=== PATIENT | male | born 1970 | race Caucasian/White ===

== ENCOUNTER → 2017-07-03 | Outpatient (CLI) | payer OTHER ==
[~2017-07-03] MED LIST: CENTTAB47 PO
--- NOTE | 2017-07-03 16:48 | REP ---
Clinical: Radiculopathy. Technique: AP, lateral, flexion/extension, bilateral oblique, swimmers and open-mouth views of the cervical spine. Comparison: 07/11/2014. Findings: Chronic reversal of normal lordosis along with evidence for prior anterior fusion at the C5-6 level and moderate/early advanced multilevel degenerative changes are again appreciated and similar to prior examination. The associated disc spaces appear minimally narrowed and disc bulge/herniation cannot be excluded based on radiographic evaluation. Retrolisthesis at the C4-5 level of approximately 3 mm is noted and remains stable on flexion/extension views. No acute fracture / compression injury. Impression: Moderate to advanced multilevel degenerative changes as described above similar to 2014. Disc bulges/herniations cannot be excluded based on current radiographic evaluation. If the patient remains symptomatic consider MRI for further investigation. Signed by Camilo Herzog MD 07/03/2017 04:40 P
== END ==
LOC: M RAD 16:12
PROVIDERS: ATTEND Family Medicine
DX: M54.12 Radiculopathy, cervical region (principal); M50.30 Other cervical disc degeneration, unspecified cervical region

== ENCOUNTER → 2018-03-31 | Outpatient (CLI) | payer OTHER | LOC: M RAD 15:57 | DX: M79.671 Pain in right foot (principal) | CPT/HCPCS: 73650 ==

== ENCOUNTER 2019-01-28 11:58 | Day surgery (SDC) | payer OTHER ==
[~2019-01-28] VITALS: Ht 165.1 cm; Wt 68.9 kg
[~2019-01-28 11:58] MED LIST changes: +NS 1,000 ML IV ONE
[2019-01-28] MEDS ORDERED: LIDOCAINE 2% INJ 100 MG/5 ML SDV (FOR ANES.) As Ordered ONE (12:18)
[2019-01-28] MEDS ORDERED: fentaNYL 100 MCG/2 ML INJECTION (J3010) As Ordered ONE (12:18)
[2019-01-28] MEDS ORDERED: PROPOFOL 500 MG/50 ML VIAL As Ordered ONE (12:19)
[2019-01-28] MEDS ORDERED: PHENYLephrine HCL 500 MCG/5 ML (100MCG/ML) SYRINGE (J2370) As Ordered ONE (13:57)
--- NOTE | 2019-01-28 14:08 | ROOR ---
Patient Name: Nathan Fajardo Procedure Date: 01/28/2019 1:45 PM Date of : 1970 Age: 48 Room: [facility] Gender: Male Note Status: Finalized Procedure: Upper GI endoscopy Indications: Oropharyngeal phase dysphagia, Globus sensation Providers: Campos HUSSEIN MD Referring MD: YAMIL JARA MD Requesting Provider: Medicines: Monitored Anesthesia Care Complications: No immediate complications. Procedure: Pre-Anesthesia Assessment: - The heart rate, respiratory rate, oxygen saturations, blood pressure, adequacy of pulmonary ventilation, and response to care were monitored throughout the procedure. The Endoscope was introduced through the mouth, and advanced to the second part of duodenum. The upper GI endoscopy was accomplished without difficulty. The patient tolerated the procedure well. Findings: A moderate-sized area of extrinsic compression was found at the cricopharyngeus. The examined esophagus was normal. The entire examined stomach was normal. The examined duodenum was normal. The scope was withdrawn. Dilation was performed in the esophagus with a Gross dilator with mild resistance at 50 Fr. Impression: - Extrinsic compression at the cricopharyngeus. Dilation performed in the esophagus. - Normal esophagus. - Normal stomach. - Normal examined duodenum. - No specimens collected. Recommendation: - Observe patient's clinical course. - Use Prilosec (omeprazole) 40 mg PO daily. Campos Hussein MD Campos HUSSEIN MD 01/28/2019 2:08:27 PM Electronically signed by Campos HUSSEIN MD Number of Addenda: 0 Note Initiated On: 01/28/2019 1:45 PM Estimated Blood Loss: Estimated blood loss: none.
--- NOTE | 2019-01-28 14:12 | ROOR ---
Patient Name: Nathan Fajardo Procedure Date: 01/28/2019 1:46 PM Date of : 1970 Age: 48 Room: [facility] Gender: Male Note Status: Finalized Procedure: Colonoscopy Indications: Last colonoscopy: May 2016, Hematochezia Providers: Campos SHAH MD Referring MD: YAMIL JARA MD Requesting Provider: Medicines: Monitored Anesthesia Care Complications: No immediate complications. Procedure: Pre-Anesthesia Assessment: - The heart rate, respiratory rate, oxygen saturations, blood pressure, adequacy of pulmonary ventilation, and response to care were monitored throughout the procedure. The Colonoscope was introduced through the anus and advanced to the cecum, identified by appendiceal orifice and ileocecal valve. The colonoscopy was performed without difficulty. The patient tolerated the procedure well. The quality of the bowel preparation was good. Findings: The perianal and digital rectal examinations were normal. Two sessile polyps were found in the sigmoid colon and splenic flexure. The polyps were diminutive in size. These polyps were removed with a jumbo cold forceps. Resection and retrieval were complete. Mild sigmoid diverticulosis and moderate to large internal hemorrhoids. Impression: - Two diminutive polyps in the sigmoid colon and at the splenic flexure, removed with a jumbo cold forceps. Resected and retrieved. - Mild sigmoid diverticulosis and moderate to large internal hemorrhoids. - The colon exam was otherwise normal. Recommendation: - Repeat colonoscopy in 5 years for surveillance. Campos Shah MD Campos SHAH MD 01/28/2019 2:12:11 PM Electronically signed by Campos SHAH MD Number of Addenda: 0 Note Initiated On: 01/28/2019 1:46 PM Estimated Blood Loss: Estimated blood loss: none.
[2019-01-28 14:44] VITALS: BP 118/79
== END 2019-01-28 14:44 | disposition home or self-care (01) ==
LOC: M OPP 11:58
PROVIDERS: ATTEND Internal Medicine Gastroenterology
DX: K63.5 Polyp of colon (principal); K57.30 Diverticulosis of large intestine without perforation or abscess without bleeding; K64.8 Other hemorrhoids; K92.1 Melena; K22.2 Esophageal obstruction; R13.12 Dysphagia, oropharyngeal phase; F45.8 Other somatoform disorders; F17.210 Nicotine dependence, cigarettes, uncomplicated
CPT/HCPCS: 43235; 43450; 45380; 88305; J2370; J3010

== ENCOUNTER → 2019-11-07 | Outpatient (REF) | payer OTHER ==
[~2019-11-07] MED LIST changes: -NS 1,000 ML IV ONE
[2019-11-07 13:21] LABS: INFLUENZA A AMPLIFICATION NEGATIVE (NEGATIVE); INFLUENZA B AMPLIFICATION NEGATIVE (NEGATIVE)
== END ==
LOC: M LAB REF 10:32
PROVIDERS: ATTEND Physician Assistant Medical
DX: R50.9 Fever, unspecified (principal); R05 Cough; J11.1 Influenza due to unidentified influenza virus with other respiratory manifestations

== ENCOUNTER 2020-03-31 11:52 | Inpatient (IN) | payer OTHER ==
[~2020-03-31] VITALS: Ht 165.1 cm; Wt 67.8 kg
[2020-03-31 12:41] LABS: BASO # 0.1 10^3/uL (0.0-0.2); BASO % 0.4 % (0.0-1.0); EOS # 0.3 10^3/uL (0.0-0.5); EOS % 2.7 % (0.0-3.0); HEMATOCRIT 42.8 % (42.0-52.0); HEMOGLOBIN 15.1 g/dl (13.5-17.5); LYMPH % 24.9 % (24.0-44.0); MEAN CORPUSCULAR HEMOGLOBIN 31.4 pg (27.0-33.0); MEAN CORPUSCULAR HGB CONC 35.3 g/dl (32.0-36.5); MONO # 0.7 10^3/uL (0.0-0.8); MONO % 6.1 % (0.0-5.0); NEUTROPHILS # 7.9 10^3/uL (1.5-8.5); NEUTROPHILS % 65.6 % (36.0-66.0); PLATELET COUNT, AUTOMATED 258 10^3/uL (150-450); RED BLOOD COUNT 4.81 10^6/uL (4.30-6.10); WHITE BLOOD COUNT 12.1 10^3/uL (4.0-10.0)
[2020-03-31 12:54] LABS: INR 0.94; PROTHROMBIN TIME 12.3 SECONDS (11.8-14.0)
[2020-03-31 12:55] LABS: PARTIAL THROMBOPLASTIN TIME 27.3 SECONDS (25.0-38.4)
[2020-03-31 13:09] LABS: BLOOD UREA NITROGEN 15 MG/DL (7-18); CALCIUM LEVEL 8.8 MG/DL (8.5-10.1); CARBON DIOXIDE LEVEL 25 MEQ/L (21-32); CHLORIDE LEVEL 109 MEQ/L (98-107); CK-MB VALUE MASS 2.7 NG/ML (<3.6); CPK CREATINE PHOSPHOKINASE 310 U/L (39-308); CREATININE FOR GFR 0.84 MG/DL (0.70-1.30); GLOMERULAR FILTRATION RATE > 60.0 (>56); GLUCOSE, FASTING 90 MG/DL (70-100); MB/CK RELATIVE INDEX 0.87 (< OR =4); POTASSIUM SERUM 4.1 MEQ/L (3.5-5.1); SODIUM LEVEL 141 MEQ/L (136-145); TROPONIN I < 0.02 NG/ML (< 0.10)
[2020-03-31] MEDS ORDERED: ASPIRIN 325 MG TAB PO ONE (13:15)
[2020-03-31] MEDS ORDERED: ACETAMINOPHEN TAB 650MG DOSE (2X325MG) PO PRN (14:00)
--- NOTE | 2020-03-31 14:34 | HPEPDOC ---
General Date of Admission March 31, 2020 at 13:56 Date of Service: March 31, 2020 Chief Complaint The patient is a 49-year-old male admitted with a reason for visit of CVA. Source: Patient Exam Limitations: No limitations Timing/Duration: Day(s) History of Present Illness Patient is 49 years old male without significant past medical history presented hospital with left facial numbness and soreness of his speech. Patient stated that his symptoms started 2 days ago when he noticed numbness of left part of his face and he noticed that his speech became slightly slurry. Yesterday his noticed left mouth droop, and today she advised him to come to the hospital. Patient denied any legs or arms weaknesses. Of note patient complains of teeth problem, he stated that his dentist planned to remove upper dentures. However he denies any left-sided tooth pain. He denied fever, chills. In emergency room patient patient was found to have mouth droop, CT head was negative for acute bleed. I talked to Dr. Villalba he recommended MRI, MRA of the brain Home Medications No Active Prescriptions or Reported Meds Allergies Coded Allergies: No Known Allergies (Unverified , 01/26/19) Past Medical History Medical History Congenital right forearm deformity Surgical History Neck disc surgery Family History Father from heart attack Social History * Smoker: current smoker Alcohol: occationally Drugs: denies A-FIB/CHADSVASC A-FIB History Current/History of A-Fib/PAF?: No Current PO Anticoag Therapy: No Review of Systems Constitutional: Denies: Chills, Fever Eyes: Denies: Pain, Vision change ENT: Denies: Ear Pain, Dysphagia Skin: Reports: Other (left facial numbness); Denies: Rash Pulmonary: Denies: Dyspnea Cardiovascular: Denies: Chest Pain Gastrointestinal: Denies: Nausea Genitourinary: Denies: Dysuria, Frequency Hematologic: Denies: Bruising Endocrine: Denies: Polydipsia, Polyphagia Musculoskeletal: Denies: Neck Pain, Back Pain Neurological: Reports: Numbness (left facial,), Change in speech (mild slurriness) Psych: Reports: Mood Normal Physical Examination General Exam: Positive: Alert, Cooperative Eye Exam: Positive: PERRLA ENT Exam: Positive: Atraumatic, Mucous membr. moist/pink Neck Exam: Positive: Supple Chest Exam: Positive: Clear to auscultation Heart Exam: Positive: Rate Normal Telemetry: Positive: No significant arrhythmia Abdomen Exam: Positive: Normal bowel sounds Extremity Exam: Negative: Clubbing, Cyanosis Skin Exam: Positive: Nl turgor and temperature Neuro Exam: Positive: Normal Gait, Strength at 5/5 X4 ext, Sensation Intact (left facial numbness); Negative: Normal Speech (mild slurriness) Psych Exam: Positive: Mental status NL Vital Signs Vital Signs Date Time Temp Pulse Resp B/P (MAP) Pulse Ox O2 Delivery O2 Flow Rate FiO2 03/31/20 13:15 61 18 118/62 (80) 97 Room Air 03/31/20 11:55 98.7 Laboratory Data Labs 24H Laboratory Tests 2 03/31/20 12:28: Immature Granulocyte % (Auto) 0.3, Neutrophils (%) (Auto) 65.6, Lymphocytes (%) (Auto) 24.9, Monocytes (%) (Auto) 6.1H, Eosinophils (%) (Auto) 2.7, Basophils (%) (Auto) 0.4, Neutrophils # (Auto) 7.9, Lymphocytes # (Auto) 3.0, Monocytes # (Auto) 0.7, Eosinophils # (Auto) 0.3, Basophils # (Auto) 0.1, Nucleated Red Blood Cells % (auto) 0.0, Prothrombin Time 12.3, Prothromb Time International Ratio 0.94, Activated Partial Thromboplast Time 27.3, Anion Gap 7L, Glomerular Filtration Rate > 60.0, Calcium Level 8.8, Total Creatine Kinase 310H, Creatine Kinase MB 2.7, Creatine Kinase MB Relative Index 0.87, Troponin I < 0.02 03/31/20 12:53: Bedside Glucose (Misc Panel) 92 CBC/BMP Laboratory Tests 03/31/20 12:28 Assessment/Plan Patient is 49 years old male without significant past medical history presented hospital with left facial numbness and soreness of his speech. Patient stated that his symptoms started 2 days ago when he noticed numbness of left part of his face and he noticed that his speech became slightly slurry. Yesterday his noticed left mouth droop, and today she advised him to come to the hospital. Patient denied any legs or arms weaknesses. Of note patient complains of teeth problem, he stated that his dentist planned to remove upper dentures. However he denies any left-sided tooth pain. He denied fever, chills. In emergency room patient patient was found to have mouth droop, CT head was negative for acute bleed. I talked to Dr. Villalba he recommended MRI, MRA of the brain Problems (1) Facial droop Status: Acute Problem Text: Unclear etiology for now CT scan was negative for acute bleed Differential diagnosis includes CVA versus Greenberg's palsy secondary to infection from the tooth or viral infection MRI, MRA Statin, aspirin Will proceed with echo Telemetry (2) Slurred speech Status: Acute Problem Text: See above Plan / VTE VTE Prophylaxis Ordered?: Yes MARGARITA PONCE DO March 31, 2020 14:34
--- NOTE | 2020-03-31 15:05 | REPVR ---
PROCEDURE INFORMATION: Exam: MR Head Without Contrast Exam date and time: 03/31/2020 1:21 PM Age: 49 years old Clinical indication: Speech disturbance; Patient HX: Facial numbness, slurred speech; Additional info: CVA TECHNIQUE: Imaging protocol: MR of the head without contrast. COMPARISON: CT Head without contrast 03/31/2020 12:06 PM FINDINGS: Brain: Examination of the brain demonstrates normal morphology and signal intensity.No acute infarction, masses, midline shift or acute hemorrhage is seen. No acute intracranial abnormality is identified.There is no abnormal diffusion weighted signal intensity to suggest an acute ischemic event.The cortical diaz / white matter interfaces are preserved throughout the brain.Intracranial flow voids are well maintained.Examination of the posterior fossa demonstrates no significant abnormality.On gradient echo imaging, no susceptibility changes are seen to represent parenchymal calcification or degraded blood products. Ventricles: The ventricular system is not dilated and is appropriate for the patient's age. Bones/joints: Unremarkable. Sinuses: Retention cyst is seen in the left maxillary sinus. Mild mucosal thickening is seen in the paranasal sinuses. Mastoid air cells: Normal as visualized. No mastoid effusion. Orbits: Unremarkable. Soft tissues: Unremarkable. IMPRESSION: 1. No acute infarction, masses or hemorrhage is seen. No acute intracranial abnormality is identified. 2. There has been no adverse interval change since the previous study. Electronically signed by: Jc Cain On 03/31/2020 15:05:11 PM
--- NOTE | 2020-03-31 15:07 | REP ---
CT BRAIN WITHOUT CONTRAST: CT brain performed without IV contrast. Coronal reconstruction images are performed. The ventricles are normal in size and position. There is no midline shift or mass effect. Pryor-white differentiation is well maintained. There is no acute intracranial hemorrhage or extra-axial fluid collection. Mastoid air cells appear clear. There is mild to moderate mucosal thickening in the ethmoid sinuses. IMPRESSION: Mild to moderate mucosal thickening and sinusitis involving the ethmoid sinuses. Otherwise, negative noncontrast CT brain. Electronically Signed by David Pryor MD 03/31/2020 09:49 P
--- NOTE | 2020-03-31 15:10 | REPVR ---
PROCEDURE INFORMATION: Exam: MR Angiogram Head Without Contrast, Arteries Exam date and time: 03/31/2020 1:21 PM Age: 49 years old Clinical indication: Speech disturbance; Slurred speech; Additional info: CVA TECHNIQUE: Imaging protocol: MR angiogram head without contrast. Exam focused on the arteries. 3D rendering: MIP and/or 3D reconstructed images were created by the technologist. COMPARISON: CT Head without contrast 03/31/2020 12:06 PM FINDINGS: Anterior cerebral arteries: Intracranial segment is patent with no significant stenosis. No aneurysm. Right internal carotid artery: Intracranial segment is patent with no significant stenosis. No aneurysm. Right middle cerebral artery: No occlusion or significant stenosis. No aneurysm. Right posterior cerebral artery: No occlusion or significant stenosis. No aneurysm. Right vertebral artery: No occlusion or significant stenosis. No aneurysm. Left internal carotid artery: Intracranial segment is patent with no significant stenosis. No aneurysm. Left middle cerebral artery: No occlusion or significant stenosis. No aneurysm. Left posterior cerebral artery: No occlusion or significant stenosis. No aneurysm. Left vertebral artery: No occlusion or significant stenosis. No aneurysm. Basilar artery: No occlusion or significant stenosis. No aneurysm. IMPRESSION: No stenosis.No occlusion. No aneurysm. Electronically signed by: Jc Cain On 03/31/2020 15:10:07 PM
[2020-03-31 15:14] VITALS: BP 145/90
--- NOTE | 2020-03-31 15:26 | REP ---
CHEST, AP: AP views of the chest are performed with portable technique. No acute infiltrate is seen. There appears to be mild biapical pleural and parenchymal scarring. Heart is not enlarged. Mediastinal silhouette is unremarkable. IMPRESSION: No acute pulmonary disease. Electronically Signed by David Pryor MD 03/31/2020 09:53 P
--- NOTE | 2020-03-31 15:35 | REP ---
CAROTID ULTRASOUND: Real-time ultrasound evaluation and duplex Doppler interrogation of the extracranial carotid vasculature is performed. There is mild plaquing and narrowing in both carotid bulbs extending into the internal and external carotid arteries. Luminal narrowing is less than 50%. There is no evidence of hemodynamically significant stenosis of either internal carotid artery. Normal flow velocities are seen. The vertebral arteries demonstrate normal direction of flow. RIGHT LEFT Peak systolic velocity ICA 72.7 cm/s 70 cm/s End diastolic velocity ICA 30.2 cm/s 13.4 cm/s Peak systolic velocity CCA 103.3 cm/s 92.6 cm/s Peak systolic velocity ECA 104.7 cm/s 82.4 cm/s ICA/CCA ratio 0.7 0.7 IMPRESSION: Bilateral luminal narrowing of the internal carotid arteries less than 50%. No evidence of hemodynamically significant stenosis. Electronically Signed by David Pryor MD 03/31/2020 03:27 P
[2020-03-31 16:49] LABS: PROTHROMBIN TIME 12.9 SECONDS (11.8-14.0)
[2020-03-31] MEDS: predniSONE 20 MG TAB PO SCH (17:15)
[2020-03-31] MEDS: HEPARIN SOD (PORCINE) 5000UNITS/ML VIAL (J1644 PER 1000UNITS) SC SCH ×3 (21:00→22:52)
[2020-03-31] MEDS ORDERED: ATORVASTATIN 20 MG TAB PO SCH (21:00)
[2020-03-31 22:00] VITALS: BP 116/67
[2020-03-31] MEDS: AUGMENTIN 875 MG TAB PO SCH (22:07)
[2020-03-31] MEDS: valACYclovir HCL 500 MG TAB PO SCH (22:08)
[2020-04-01 06:00] VITALS: BP 122/77
[2020-04-01 06:28] LABS: HEMATOCRIT 42.9 % (42.0-52.0); HEMOGLOBIN 15.2 g/dl (13.5-17.5); MEAN CORPUSCULAR HEMOGLOBIN 31.5 pg (27.0-33.0); MEAN CORPUSCULAR HGB CONC 35.4 g/dl (32.0-36.5); MEAN CORPUSCULAR VOLUME 88.8 fl (80.0-96.0); PLATELET COUNT, AUTOMATED 271 10^3/uL (150-450); RED BLOOD COUNT 4.83 10^6/uL (4.30-6.10); WHITE BLOOD COUNT 11.9 10^3/uL (4.0-10.0)
[2020-04-01 06:49] LABS: ALBUMIN 3.8 GM/DL (3.2-5.2); ALT/SGPT 25 U/L (12-78); BILIRUBIN,TOTAL 0.7 MG/DL (0.2-1.0); BLOOD UREA NITROGEN 13 MG/DL (7-18); CALCIUM LEVEL 8.9 MG/DL (8.5-10.1); CARBON DIOXIDE LEVEL 25 MEQ/L (21-32); CHLORIDE LEVEL 107 MEQ/L (98-107); CHOLESTEROL LEVEL 234 MG/DL (<200); CHOLESTEROL RISK RATIO 4.105 (<5); CREATININE FOR GFR 0.79 MG/DL (0.70-1.30); GLOMERULAR FILTRATION RATE > 60.0 (>56); GLUCOSE, FASTING 133 MG/DL (70-100); HDL CHOLESTEROL 57 MG/DL (>40); LDL CHOLESTEROL 167 MG/DL (<100); MAGNESIUM LEVEL 2.1 MG/DL (1.8-2.4); NON-HDL-C 177 MG/DL; POTASSIUM SERUM 4.2 MEQ/L (3.5-5.1); SODIUM LEVEL 137 MEQ/L (136-145); TRIGLYCERIDES LEVEL 50 MG/DL (<150)
[2020-04-01] MEDS: AUGMENTIN 875 MG TAB PO SCH (08:42)
[2020-04-01] MEDS: valACYclovir HCL 500 MG TAB PO SCH (08:42)
[2020-04-01] MEDS: predniSONE 20 MG TAB PO SCH (08:42)
[2020-04-01] MEDS: HEPARIN SOD (PORCINE) 5000UNITS/ML VIAL (J1644 PER 1000UNITS) SC SCH (08:42)
[2020-04-01] MEDS ORDERED: ASPIRIN 81 MG CHEW TABLET PO SCH (09:00)
[2020-04-01] MEDS ORDERED: VALA500T5 PO (11:06)
[2020-04-01] MEDS ORDERED: ATOR1TAB21 PO (11:06)
[2020-04-01] MEDS ORDERED: AMOX875T2 PO (11:06)
[2020-04-01] MEDS ORDERED: PRED20TA PO (11:06)
--- NOTE | 2020-04-01 13:34 | DS.PDOC ---
Discharge Summary General Date of Admission March 31, 2020 at 13:56 Date of Discharge 04/01/20 Discharge Summary PROCEDURES PERFORMED DURING STAY: [None]. ADMITTING DIAGNOSES: Facial droop Slurred speech DISCHARGE DIAGNOSES: Facial droop Slurred speech COMPLICATIONS/CHIEF COMPLAINT: CVA. HISTORY OF PRESENT ILLNESS: Patient is 49 years old male without significant past medical history presented hospital with left facial numbness and soreness of his speech. Patient stated that his symptoms started 2 days ago when he noticed numbness of left part of his face and he noticed that his speech became slightly slurry. Yesterday his noticed left mouth droop, and today she advised him to come to the hospital. Patient denied any legs or arms weaknesses. Of note patient complains of teeth problem, he stated that his dentist planned to remove upper dentures. However he denies any left-sided tooth pain. He denied fever, chills. In emergency room patient patient was found to have mouth droop, CT head was negative for acute bleed. I talked to Dr. Villalba he recommended MRI, MRA of the brain HOSPITAL COURSE: The following issue addressed (1) Facial droop CT scan was negative for acute bleed Differential diagnosis includes CVA versus Greenberg's palsy secondary to infection from the tooth or viral infection MRI, MRA negative Most likely patient developed Greenberg's palsy given negative imaging study DISCHARGE MEDICATIONS: Please see below. ALLERGIES: Please see below. PHYSICAL EXAMINATION ON DISCHARGE: VITAL SIGNS: Please see below. GENERAL: awake, alert, NAD HEENT: NCAT, anicteric sclera, JETHRO NECK: supple, no JVD CARDIOVASCULAR EXAMINATION: NS1S2, regular rate/rhythm RESPIRATORY EXAMINATION: CTA b/l, no wheezes/rales/rhonchi ABDOMINAL EXAMINATION: positive bowel sounds x 4, NT EXTREMITIES: no cyanosis, clubbing, edema SKIN: warm, no rashes. NEUROLOGICAL EXAMINATION: AAO x 3, mild left facial droop PSYCHIATRIC EXAMINATION: calm, normal affect LABORATORY DATA: Please see below. IMAGING: [facility] NAME: RADHA CHEN DATE OF : 1970 BUSINESS NUMBER: [id number] AGE: 49 SEX: M REPORT #: [id number] ROOM: ED INP TECHNOLOGIST: [id number] DOCTOR: KELLIE WITT MD Ordered for Date&Time: 03/31/20 1321 cc: [~ rep ct ivnm] Service Date&Time: This report is in Signed status. Interpretation performed by [facility]. Thank you for having your radiology procedures performed at [facility] RADIOLOGY REPORT Date&Time printed: [~ rep prt dt last] [~ rep prt tm last] Page 2 of [address] [id number] RADIOLOGY REPORT This report is in Signed status. Interpretation performed by [facility]. Thank you for having your radiology procedures performed at [facility] RADIOLOGY REPORT Date&Time printed: [~ rep prt dt last] [~ rep prt tm last] Page 1 of 2 PROCEDURE INFORMATION: Exam: MR Angiogram Head Without Contrast, Arteries Exam date and time: 03/31/2020 1:21 PM Age: 49 years old Clinical indication: Speech disturbance; Slurred speech; Additional info: CVA TECHNIQUE: Imaging protocol: MR angiogram head without contrast. Exam focused on the arteries. 3D rendering: MIP and/or 3D reconstructed images were created by the technologist. COMPARISON: CT Head without contrast 03/31/2020 12:06 PM FINDINGS: Anterior cerebral arteries: Intracranial segment is patent with no significant stenosis. No aneurysm. Right internal carotid artery: Intracranial segment is patent with no significant stenosis. No aneurysm. Right middle cerebral artery: No occlusion or significant stenosis. No aneurysm. Right posterior cerebral artery: No occlusion or significant stenosis. No aneurysm. Right vertebral artery: No occlusion or significant stenosis. No aneurysm. Left internal carotid artery: Intracranial segment is patent with no significant stenosis. No aneurysm. Left middle cerebral artery: No occlusion or significant stenosis. No aneurysm. Left posterior cerebral artery: No occlusion or significant stenosis. No aneurysm. Left vertebral artery: No occlusion or significant stenosis. No aneurysm. Basilar artery: No occlusion or significant stenosis. No aneurysm. IMPRESSION: No stenosis.No occlusion. No aneurysm. Electronically signed by: Jc Cain On 03/31/2020 15:10:07 PM DD: JC CAIN MD 03/31/20 1321 DT: JAG 03/31/20 151 DS: PETRA 03/31/20 1510 [~ rep ct labl] PROGNOSIS: Fair ACTIVITY: [As tolerated]. DIET: Regular DISPOSITION: 01 Home, Self-Care. ITEMS TO FOLLOWUP ON ON OUTPATIENT: With PCP and neurologist in 10 days DISCHARGE CONDITION: [Stable]. TIME SPENT ON DISCHARGE: Greater than 20 minutes. Vital Signs/I&Os Vital Signs Date Time Temp Pulse Resp B/P (MAP) Pulse Ox O2 Delivery O2 Flow Rate FiO2 04/01/20 06:00 97.9 81 17 122/77 (92) 96 Room Air I&O- Last 24 Hours up to 6 AM 04/01/20 06:00 Intake Total 500 ml Output Total 475 ml Balance 25 ml Laboratory Data Labs 24H Laboratory Tests 2 03/31/20 16:10: Prothrombin Time 12.9, Prothromb Time International Ratio 1.00 04/01/20 05:33: Nucleated Red Blood Cells % (auto) 0.0, Anion Gap 5L, Glomerular Filtration Rate > 60.0, Calcium Level 8.9, Magnesium Level 2.1, Total Bilirubin 0.7, Aspartate Amino Transf (AST/SGOT) 21, Alanine Aminotransferase (ALT/SGPT) 25, Alkaline Phosphatase 86, Total Protein 7.0, Albumin 3.8, Albumin/Globulin Ratio 1.2, Triglycerides Level 50, Total Cholesterol 234H, LDL Cholesterol 167H, Non-HDL Cholesterol (LDL + VLDL) 177, Total HDL Cholesterol 57, Cholesterol/HDL Ratio 4.105 CBC/BMP Laboratory Tests 04/01/20 05:33 Discharge Medications Scheduled Amoxicillin/Potassium Clav (Amox-Clav 875-125 mg Tablet) 1 Each Tablet, 875 MG PO BID Atorvastatin Calcium (Atorvastatin Calcium) 20 Mg Tablet, 20 MG PO QHS Prednisone (Prednisone) 20 Mg Tablet, 60 MG PO DAILY Valacyclovir HCl (Valacyclovir) 500 Mg Tablet, 500 MG PO BID Allergies Coded Allergies: No Known Allergies (Unverified , 01/26/19) MARGARITA PONCE DO April 01, 2020 13:34
--- NOTE | 2020-04-01 19:43 | ECGEPIP ---
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
== END 2020-04-01 12:04 | disposition home or self-care (01) | DRG 48 ==
LOC: M ED 11:52 → M ED INP 13:56 → ENRESERV 14:48 → M MSPAV 15:14
PROVIDERS: ADMIT Internal Medicine; ATTEND Internal Medicine
DX: G51.0 Bell's palsy (principal)

== ENCOUNTER 2021-09-30 08:10 | Outpatient (RCR) ==
[~2021-09-30 08:10] MED LIST changes: +AMOX875T2 PO; +ATOR1TAB21 PO; +PRED20TA PO; +VALA500T5 PO
== END 2021-09-30 15:00 | disposition home or self-care (01) ==
LOC: M EMP 08:10
PROVIDERS: ATTEND Pediatrics
DX: Z11.52 Encounter for screening for COVID-19 (principal)